=== PATIENT | male | born 1950 | race Caucasian/White ===

== ENCOUNTER 2018-10-15 23:19 | Emergency (ER) | payer MEDICARE ==
[~2018-10-15] VITALS: Ht 188 cm; Wt 88.6 kg
[2018-10-15 23:28] VITALS: Ht 188 cm; Wt 88.6 kg
[2018-10-15] MEDS ORDERED: TRAZODONE HCL150 MG PO (23:31)
[2018-10-15] MEDS ORDERED: THIORIDAZINE H100 MG PO (23:32)
[2018-10-15 23:56] LABS: HEMATOCRIT 31.6 % (42.0-54.0); HEMOGLOBIN 11.5 g/dL (13.5-17.5); MCH 30.9 pg (26.0-34.0); MCHC 36.4 g/dL (31.0-37.0); MCV 84.9 fL (80.0-100.0); MEAN PLATELET VOLUME 10.7 fL (7.4-10.4); PLATELET COUNT 200 10x3/uL (130-400); RBC 3.72 10x6/uL (4.20-6.10); RDW 12.8 % (11.5-14.5); WBC 14.8 10x3/uL (4.8-10.8)
[2018-10-16 00:23] LABS: ALBUMIN 3.7 g/dL (3.4-5.0); ALKALINE PHOSPHATASE 61 U/L (46-116); ALT (SGPT) 21 U/L (10-68); BILIRUBIN - TOTAL 0.68 mg/dL (0.2-1.3); CALC OSMOLALITY 282 mosm/kg (275-300); CALCIUM 8.7 mg/dL (8.5-10.1); CARBON DIOXIDE 22.9 mmol/L (21.0-32.0); CHLORIDE - SERUM 102 mmol/L (98-107); CREATININE - SERUM 1.3 mg/dL (0.6-1.3); GLUCOSE 114 mg/dL (74-106); LIPASE 74 U/L (73-393); PRO BNP 90 pg/mL (0-125); SODIUM 142 mmol/L (136-145); TROPONIN-I < 0.017 ng/mL (0.000-0.060); UREA NITROGEN 10 mg/dL (7-18); eGFR NON AFRICAN AMERICAN 59 mL/min (90-120)
[2018-10-16 02:09] LABS: APPEARANCE CLEAR (CLEAR); BILIRUBIN NEGATIVE (NEGATIVE); COLOR YELLOW (YELLOW); GLUCOSE NEGATIVE (NEGATIVE); KETONE NEGATIVE (NEGATIVE); NITRITE NEGATIVE (NEGATIVE); PROTEIN NEGATIVE (NEGATIVE); SPECIFIC GRAVITY 1.015 (1.005-1.020); UROBILINOGEN NORMAL (NORMAL)
[2018-10-16 02:23] LABS: EOSINOPHILS 2 % (0-7); LYMPHOCYTES 20 % (15-50); MONOCYTES 10 % (2-11); NEUTROPHILS 68 % (40-80); PLATELET ESTIMATE NORMAL
[2018-10-16] MEDS ORDERED: ZOFRAN4 MG PO (02:38)
[2018-10-16 03:00] VITALS: BP 135/67
== END 2018-10-16 03:00 | disposition home or self-care (01) ==
LOC: D.ER 23:19
PROVIDERS: Family Medicine
DX: R11.2 Nausea with vomiting, unspecified (principal); K65.4 Sclerosing mesenteritis